=== PATIENT | male | born 1970 ===

== ENCOUNTER 2023-09-10 18:41 | Emergency (ER) | payer BC ==
[~2023-09-10] VITALS: Ht 182.9 cm; Wt 99.3 kg
[2023-09-10] MEDS ORDERED: CEFAZOLIN SODIUM 1 GM VIAL IVPB STA (18:52)
[2023-09-10] MEDS ORDERED: KETOROLAC 30MG VIAL (30MG/ML) IVP ONE (19:00)
[2023-09-10] MEDS ORDERED: TETANUS/DIPHTHERIA TOXOID [ADULT] 0.5 ML VIAL IM ONE (19:00)
[2023-09-10] MEDS ORDERED: CEPH500B PO (19:58)
[2023-09-10] MEDS ORDERED: MUPI22O TP (19:58)
[2023-09-10] MEDS ORDERED: IBUP-2077 PO (19:58)
[2023-09-10 20:00] LABS: BASOPHILS # (AUTO) 0.09 K/uL (0.00-0.20); BASOPHILS % (AUTO) 0.5 % (0.0-5.0); EOSINOPHILS # (AUTO) 0.13 K/uL (0.00-0.70); EOSINOPHILS % (AUTO) 0.7 % (0.0-8.0); HEMATOCRIT 43.4 % (42-54); IMMATURE GRANULOCYTE ABSOLUTE 0.26 K/uL (0-1); LYMPHOCYTES # (AUTO) 1.7 K/uL (1.0-4.8); LYMPHOCYTES % (AUTO) 8.5 % (21.0-51.0); MEAN CORPUSCULAR HEMOGLOBIN 29.9 pg (27.0-33.0); MEAN CORPUSCULAR HGB CONC 33.9 g/dL (32.0-36.0); MEAN CORPUSCULAR VOLUME 88.2 fL (79-99); MONOCYTES # (AUTO) 1.2 K/uL (0.1-1.0); MONOCYTES % (AUTO) 6.3 % (3.0-13.0); NEUTROPHILS # (AUTO) 16.1 K/uL (1.8-7.7); NEUTROPHILS % (AUTO) 82.7 % (40.0-77.0); PLATELET COUNT (AUTO) 273 K/uL (130-400); RED BLOOD CELL COUNT(AUTO) 4.92 MIL/uL (4.50-6.20); RED CELL DISTRIBUTION WIDTH 12.7 % (11.0-15.5); WHITE BLOOD COUNT (AUTO) 19.4 K/uL (4.8-10.8)
[2023-09-10] MEDS ORDERED: HYDROCODONE/ACETAMINOPHEN 5/325 MG TAB PO ONE (20:00)
[2023-09-10 20:13] LABS: INR <= 0.93 (0.85-1.15); POTASSIUM 3.8 mmol/L (3.5-5.1); PROTHROMBIN TIME 10.3 SEC (9.6-11.6)
[2023-09-10 20:14] LABS: PARTIAL THROMBOPLASTIN TIME 25.9 SEC (26.3-35.5)
[2023-09-10 20:24] LABS: BILIRUBIN,TOTAL 0.4 mg/dL (0.2-1.0); TOTAL PROTEIN, SERUM 7.3 g/dL (6.0-8.3)
[2023-09-10 21:58] VITALS: BP 111/59; PULSE 100; RESP 17; O2SAT 98
[2023-09-10] MEDS ORDERED: MORPHINE 4 MG SYG IM ONE (22:00)
[2023-09-10] MEDS ORDERED: MORPHINE 2 MG SYG IM ONE (22:00)
== END 2023-09-10 22:13 | disposition home or self-care (01) ==
LOC: EDH 18:41 → EDBD 18:41 → EDH 22:13
DX: S72.8X1A Other fracture of right femur, initial encounter for closed fracture (principal); S00.03XA Contusion of scalp, initial encounter; S50.312A Abrasion of left elbow, initial encounter; S40.212A Abrasion of left shoulder, initial encounter; Z79.899 Other long term (current) drug therapy; V86.59XA Driver of other special all-terrain or other off-road motor vehicle injured in nontraffic accident, initial encounter; Y93.I9 Activity, other involving external motion; Y92.488 Other paved roadways as the place of occurrence of the external cause; Y99.8 Other external cause status
CPT/HCPCS: 99284; 96365; 29505; 70450; 96375; 84484; 80053; 85025; 85610; 85730; 36415; 90714; 73562; 90471; 96372; 93005; J0690; J2270; J1885